=== PATIENT | female | born 1935 | race Caucasian/White ===

== ENCOUNTER 2020-03-03 14:39 | Inpatient (IN) | payer MEDICARE ==
[~2020-03-03] VITALS: Ht 160 cm; Wt 75.7 kg
[2020-03-03] MEDS ORDERED: TEMAZEPAM 7.5 MG CAPSULE PO PRN (15:00)
[2020-03-03] MEDS ORDERED: MAGNESIUM HYDROXIDE 30 ML UDC PO PRN (15:00)
[2020-03-03] MEDS ORDERED: clonazePAM 0.5 MG TABLET PO PRN (15:00)
[2020-03-03] MEDS ORDERED: ACETAMINOPHEN 325 MG TABLET PO PRN (15:00)
[2020-03-03] MEDS ORDERED: MAG HYDROX/AL HYDROX/SIMETH 30 ML UDC PO PRN ×2 (15:00→16:00)
--- NOTE | 2020-03-03 15:00 | NUR ---
RN NOTE ADMISSION/ PT ADMITTED TO [facility] FOR 5150 DTS AFTER ARRIVING IN ER AT HOSPITAL FOR SLEEPLESSNESS X SEVERAL DAYS. PT DEEMED UNABLE TO CARE FOR SELF AND AT RISK FOR HARMING SELF. PT ARRIVED ON [facility] W AMBULANCE STAFF. ON FACE TO FACE ASSESSMENT, PT FOUND TO BE ELDERLY FEMALE ALERT ORIENTED TO PERSON PLACE TIME AND PURPOSE. ALBANIAN SPEAKING MOSTLY. SPOKE W HER THROUGH ANALYTICAL CHEMIST. PT DENIES SI HI AH VH. STATES "I NEVER SAID I WANTED TO HURT MYSELF AT ALL. I WENT TO ER BECAUSE I SUFFER FROM INSOMNIA AND HAVEN'T SLEPT IN A FEW DAYS." PT VS FOLLOWS- BP- 165/65, HR- 80, RR-18, T- 98.0, SATS 98% RA. ACCU CHECK - BS- 93. MRSA CX OBTAINED AND SENT TO LAB. SKIN CHECK COMPLETED BY FEMALE RN-SKIN INTACT. PT W PMHX DEPRESSION, INSOMNIA ANXIETY, HYPERLIPIDEMIA, HTN AND CHRONIC CONSTIPATION. SHE HAS NKA. PT ORIENTED TO UNIT, PT RIGHTS PAMPHLET GIVEN, DRS INFORMED OF ADMISSION. ORDERS GIVEN AND COMPLIED WITH. PROVIDE SAFE THERAPEUTIC ENVIRONMENT. MONITOR. ASSIST.
[2020-03-03 15:14] VITALS: BP 165/65
[2020-03-03] MEDS ORDERED: FURO20TA4 PO (15:16)
[2020-03-03] MEDS ORDERED: CELE100C98 PO (15:16)
[2020-03-03] MEDS ORDERED: MULT1TAB69 PO (15:16)
[2020-03-03] MEDS ORDERED: HYDR-4076 PO (15:16)
[2020-03-03] MEDS ORDERED: PANT40TA49 PO (15:16)
[2020-03-03] MEDS ORDERED: ROSU10TA29 PO (15:16)
[2020-03-03] MEDS ORDERED: LORA2TAB95 PO (15:16)
[2020-03-03] MEDS ORDERED: TRAZ-257 PO (15:16)
[2020-03-03] MEDS ORDERED: OLME20TA23 PO (15:16)
[2020-03-03] MEDS ORDERED: METO50TA16 PO (15:16)
[2020-03-03] MEDS ORDERED: MECL-159 PO (15:16)
[2020-03-03] MEDS ORDERED: FAMO20TA8 PO (15:16)
[2020-03-03] MEDS ORDERED: SODI650T PO (15:26)
[2020-03-03] MEDS ORDERED: BLOOD SUGAR DIAGNOSTIC 1 EACH STRIP IN ONE ×2 (16:00→16:30)
--- NOTE | 2020-03-03 16:12 | NUR ---
RN-CO: DR PYLE MADE AWARE OF THE ADMISSION AND ORDER HIS ROUTINE ADMITTING ORDERS.
[2020-03-03 19:59] VITALS: BP 157/80
[2020-03-03] MEDS: MIRTAZAPINE 15 MG TABLET PO SCH (21:14)
[2020-03-03] MEDS: TEMAZEPAM 7.5 MG CAPSULE PO PRN (23:30)
--- NOTE | 2020-03-03 23:33 | NUR ---
GPS RN NOTE: INSOMNIA PT. C/O OF UNABLE TO SLEEP. ADMINISTERED RESTORIL 7.5 MG PO PRN ORDERED. WILL CONTINUE TO MONITOR FOR SAFETY AND BEHAVIOR.
[2020-03-04] MEDS: LORAZEPAM 0.5 MG TABLET PO PRN ×2 (00:45→22:19)
--- NOTE | 2020-03-04 00:47 | NUR ---
GPS RN NOTE: ANXIETY PT. APPEARS ANXIOUS. ADMINISTERED ATIVAN 0.5 MG PO PRN ORDERED. WILL CONTINUE TO MONITOR FOR SAFETY AND BEHAVIOR.
[2020-03-04] MEDS: MAGNESIUM HYDROXIDE 30 ML UDC PO PRN (06:17)
--- NOTE | 2020-03-04 06:19 | NUR ---
GPS RN NOTE: CONSTIPATION PT. C/O OF CONSTIPATION. ADMINISTERED MOM 30 ML PRN ORDERED. WILL CONTINUE TO MONITOR FOR SAFETY AND BEHAVIOR.
[2020-03-04 06:58] LABS: CHOLESTEROL 174 mg/dL (<200); HDL CHOLESTEROL 53 mg/dL (40-60); LDL 102 mg/dL (0-99); TRIGLYCERIDES 86 mg/dL (30-150)
[2020-03-04 07:23] LABS: ALANINE AMINOTRANSFERASE 19 U/L (12-78); ALBUMIN 3.4 g/dL (3.4-5.0); ALKALINE PHOSPHATASE 46 U/L (46-116); ASPARTATE AMINOTRANSFERASE 19 U/L (15-37); BILIRUBIN,TOTAL 0.5 mg/dL (0.2-1.0); CALCIUM, SERUM 8.7 mg/dL (8.5-10.1); CARBON DIOXIDE 23 mmol/L (21-32); CHLORIDE 108 mmol/L (98-107); CREATININE 1.8 mg/dL (0.6-1.3); GLUCOSE 86 mg/dL (74-106); POTASSIUM 4.1 mmol/L (3.5-5.1); SODIUM SERUM 142 mmol/L (136-145); TOTAL PROTEIN, SERUM 6.8 g/dL (6.4-8.2); UREA NITROGEN, BLOOD 25 mg/dL (7-18)
[2020-03-04 08:00] VITALS: BP 126/83
[2020-03-04] MEDS ORDERED: hydrALAZINE HCL 25 MG TABLET PO PRN (09:00)
[2020-03-04] MEDS: PANTOPRAZOLE 40 MG TABLET.DR PO SCH (10:01)
[2020-03-04] MEDS: SODIUM BICARBONATE 650 MG TABLET PO SCH ×3 (10:01→16:43)
[2020-03-04] MEDS: METOPROLOL TARTRATE 50 MG TABLET PO SCH ×2 (10:02→21:13)
--- NOTE | 2020-03-04 11:17 | NUR ---
Family Contact: SW called the pts daughter, Lesia ([phone]), and informed her that the SW will be in touch regarding the pts discharge. SW stated that the pt will be stabilized on medications and that the average length of stay is 7-10 days. SW confirmed that the pt can return to her home alone and the pts daughter stated that she has a caregiver who works about 44 hours a week. Pts daughter stated that she wants the pt to live with her but the pt refuses and "likes her independence." SW stated that she will keep pts daughter involved in the treatment plan.
--- NOTE | 2020-03-04 11:58 | NUR ---
Initial Discharge Plan: Pt currently resides in her home alone located at [address] [place] [address]. Per pt, she would like to return to her home and she has a caregiver. KARSTEN will work with the pt and the MD regarding appropriate discharge planning. SW will form a safe and proper discharge.
[2020-03-04 16:00] VITALS: BP 123/74
[2020-03-04 20:02] VITALS: BP 133/62
[2020-03-04] MEDS: ATORVASTATIN 10 MG TABLET PO SCH (21:13)
[2020-03-04] MEDS: MIRTAZAPINE 15 MG TABLET PO SCH (21:13)
[2020-03-04] MEDS: TEMAZEPAM 7.5 MG CAPSULE PO PRN (23:20)
[2020-03-05] MEDS: LORAZEPAM 0.5 MG TABLET PO PRN ×2 (04:41→20:16)
[2020-03-05 06:48] LABS: BASOPHILS % (AUTO) 0.7 % (0.0-2.0); EOSINOPHILS % (AUTO) 2.4 % (0.0-6.0); HEMATOCRIT 36 % (33-45); LYMPHOCYTES # (AUTO) 2.5 /CMM (0.8-4.8); LYMPHOCYTES % (AUTO) 41.5 % (20.0-44.0); MEAN CORPUSCULAR HGB CONC 33 g/dl (31.0-36.0); MEAN CORPUSCULAR VOLUME 94 fL (82-100); MONOCYTES # (AUTO) 0.6 /CMM (0.1-1.30); MONOCYTES % (AUTO) 9.2 % (2.0-12.0); NEUTROPHILS # (AUTO) 2.8 /CMM (1.8-8.9); NEUTROPHILS % (AUTO) 46.2 % (43.0-81.0); PLATELET COUNT (AUTO) 191 /CMM (150-450); RED BLOOD CELL COUNT(AUTO) 3.83 MIL/uL (4.0-5.2); WHITE BLOOD COUNT (AUTO) 6.1 K/uL (4.3-11.0)
[2020-03-05 06:59] LABS: CREATINE KINASE, TOTAL 126 U/L (26-192)
[2020-03-05 07:10] LABS: ALANINE AMINOTRANSFERASE 18 U/L (12-78); ALBUMIN 3.3 g/dL (3.4-5.0); ALKALINE PHOSPHATASE 43 U/L (46-116); ASPARTATE AMINOTRANSFERASE 19 U/L (15-37); BILIRUBIN,TOTAL 0.3 mg/dL (0.2-1.0); CALCIUM, SERUM 8.7 mg/dL (8.5-10.1); CARBON DIOXIDE 22 mmol/L (21-32); CHLORIDE 106 mmol/L (98-107); CREATININE 1.9 mg/dL (0.6-1.3); GLUCOSE 92 mg/dL (74-106); MAGNESIUM 2.6 mg/dL (1.8-2.4); PHOSPHORUS 3.6 mg/dL (2.5-4.9); POTASSIUM 4.5 mmol/L (3.5-5.1); SODIUM SERUM 139 mmol/L (136-145); TOTAL PROTEIN, SERUM 6.6 g/dL (6.4-8.2); UREA NITROGEN, BLOOD 34 mg/dL (7-18)
[2020-03-05 08:00] VITALS: BP 115/52
[2020-03-05] MEDS: PANTOPRAZOLE 40 MG TABLET.DR PO SCH (08:45)
[2020-03-05] MEDS: SODIUM BICARBONATE 650 MG TABLET PO SCH ×3 (08:46→16:51)
[2020-03-05] MEDS: METOPROLOL TARTRATE 50 MG TABLET PO SCH ×2 (08:47→20:59)
[2020-03-05] MEDS: LOSARTAN POTASSIUM 50 MG TABLET PO SCH (08:48)
[2020-03-05] MEDS: ACETAMINOPHEN 325 MG TABLET PO PRN (10:50)
[2020-03-05 16:10] VITALS: BP 140/66
--- NOTE | 2020-03-05 19:00 | NUR ---
GPS RN OPENING NOTES: RECEIVED PATIENT AWAKE AND IN BED, NO S/S OF DISTRESS NOTED. NO COMPLAIN OF PAIN.PATIENT'S BREATHING IS UNLABORED.PATIENT IS ALERT AND ORIENTED X2-3. PATIENT IS AMBULATORY WITH STEADY GAIT. PATIENT INSTRUCTED TO COLLECT URINE SAMPLE, ADVISED TO CALL RN IF NEEDED HELP,PATIENT VERBALIZED UNDERSTANDING. PATIENT DENIES SUICIDE IDEATIONS AND HOMICIDAL IDEATIONS AT THIS TIME. BEDSIDE RAILS UP X2 FOR SAFETY. BED IS LOCKED AND LOW POSITION. WILL CONTINUE TO MONITOR.
--- NOTE | 2020-03-05 19:52 | NUR ---
PATIENT IS WALKING IN THE HALLWAY, STEADY GAIT, ON THE PHONE TALKING TO HER SON.
--- NOTE | 2020-03-05 20:21 | NUR ---
PATIENT VERBALIZED" I'M NERVOUS". ATIVAN 0.5MG PO GIVEN. PATIENT IS IN THE BED AT THIS TIME.
[2020-03-05 20:32] VITALS: BP 160/85
[2020-03-05] MEDS: MIRTAZAPINE 15 MG TABLET PO SCH (20:58)
[2020-03-05] MEDS: ATORVASTATIN 10 MG TABLET PO SCH (20:58)
--- NOTE | 2020-03-05 21:02 | NUR ---
URINE SAMPLE COLLECTED FOR URINE TEST AND PLACED ON THE ICE AND CALLED THE LAB AND TALKED TO
[2020-03-05] MEDS: MAGNESIUM HYDROXIDE 30 ML UDC PO PRN (21:28)
[2020-03-05] MEDS: TEMAZEPAM 7.5 MG CAPSULE PO PRN (22:22)
[2020-03-06] MEDS: LORAZEPAM 0.5 MG TABLET PO PRN ×3 (02:03→19:51)
--- NOTE | 2020-03-06 02:11 | NUR ---
PATIENT STATES SHE HAD A DREAM AND SHE SLEPT.
[2020-03-06 02:15] LABS: CREATININE, URINE 18.9 MG/DL (30.0-125.0); URINE TOTAL PROTEIN 15.7 mg/dL (0-11.9)
[2020-03-06 04:36] LABS: EOSINOPHIL,URINE None Seen
[2020-03-06 04:38] LABS: APPEARANCE,URINE CLEAR (CLEAR); BILIRUBIN,URINE NEGATIVE (NEGATIVE); BLOOD, URINE NEGATIVE Ery/uL (NEGATIVE); COLOR,URINE YELLOW (YELLOW); KETONES,URINE NEGATIVE (NEGATIVE); LEUKOCYTE ESTERASE ,URINE NEGATIVE (NEGATIVE); NITRITE, URINE NEGATIVE (NEGATIVE); PROTEIN,URINE NEGATIVE (NEGATIVE); UGLUCOSE NEGATIVE (NEGATIVE); UROBILINOGEN,URINE 0.2 EU/dL (0.2)
[2020-03-06 06:07] VITALS: BP 122/69
--- NOTE | 2020-03-06 06:17 | NUR ---
CLOSING NOTES: PATIENT IS ASLEEP IN BED. NO S/S OF DISTRESS NOTED. BED IN LOWEST AND LOCKED POSITION.
[2020-03-06 08:00] VITALS: BP 116/59
[2020-03-06] MEDS: PANTOPRAZOLE 40 MG TABLET.DR PO SCH (08:41)
[2020-03-06] MEDS: LOSARTAN POTASSIUM 50 MG TABLET PO SCH (08:42)
[2020-03-06] MEDS: METOPROLOL TARTRATE 50 MG TABLET PO SCH ×2 (08:42→20:43)
[2020-03-06] MEDS: SODIUM BICARBONATE 650 MG TABLET PO SCH ×3 (08:43→17:33)
[2020-03-06 10:16] LABS: PTH, INTACT 60 pg/mL (15-65)
[2020-03-06] MEDS: HYDROCORTISONE 2.5% CREAM 28.4 GM TUBE TP SCH ×2 (12:52→17:33)
--- NOTE | 2020-03-06 14:05 | NUR ---
MOM GIVEN FOR C/O CONSTIPAATION X 3 DAYS.
[2020-03-06 16:00] VITALS: BP 136/74
--- NOTE | 2020-03-06 18:11 | NUR ---
GIVEN ATIVAN FOR ANXIETY.
--- NOTE | 2020-03-06 19:51 | NUR ---
RN NOTES : ANXIETY PT. C/O FEELING ANXIOUS PARANOID, PACING IN HALLWAY,ASKING FOR ATIVAN , ATIVAN 0.5 MG PO PRN GIVEN PER PT. REQUEST, WILL CONTINUE TO MONITOR. Addendum: 03/06/20 at 2022 by ROLANDO DARBY RN ADMINISTERED BY DAY RN AT 1808 , EARLY TOO GIVEN AT THIS TIME , BUT PT WAS REQUESTING FOR ATIVAN , BY MISTAKE PULL OUT FROM [facility] AND [facility] ,WITH CHARGE NURSE BY WITNESS, AND CHARGE NURSE MADE AWARE. Addendum: 03/06/20 at 2024 by ROLANDO DARBY RN WRONG CHARTING FOR ATIVAN ADMINISTERED, BUT ATIVAN NONE ADMIN [facility]ED [facility] TO [facility] , WITH CHARGE NURSE WITNESS.
[2020-03-06 20:06] VITALS: BP 163/71
[2020-03-06 20:43] VITALS: BP 145/82
[2020-03-06] MEDS: ATORVASTATIN 10 MG TABLET PO SCH (21:17)
[2020-03-06] MEDS: MIRTAZAPINE 15 MG TABLET PO SCH (21:17)
[2020-03-06] MEDS: TEMAZEPAM 7.5 MG CAPSULE PO PRN (22:38)
--- NOTE | 2020-03-06 22:39 | NUR ---
RN NOTES : INSOMNIA : PT. C/O INSOMNIA RESTORIL 7.5 MG PO PRN GIVEN PER PT. REQUEST, WILL CONTINUE TO MONITOR.
[2020-03-07] MEDS: ACETAMINOPHEN 325 MG TABLET PO PRN ×2 (04:59→23:41)
--- NOTE | 2020-03-07 06:00 | NUR ---
RN NOTES : PER DAY NURSE MOM GIVEN, MOM EFFECTIVE, PT. REPORTED HAD X 1 BM , DENIES ANY PAIN DISCOMFRT AT THIS TIME.
--- NOTE | 2020-03-07 06:50 | NUR ---
GPS RN NOTES: PT. RESTING IN HER ROOM, NO S/S OF DISTRESS NOTED . PT. CALM COOPERTIVE NOTE AT THIS TIME ,NO CHANGE OF CONDITION NOTED ,AND NO BEHAVIOR PROBLEMS NOTED, ALL CARE NEEDS MET ANTICIPATED. WILL CONTINUE TO MONITOR FOR SAFETY BEHAVIOR, AND ENDORSE TO AM SHIFT FOR CONTINUITY OF CARE.
[2020-03-07 08:00] VITALS: BP 145/71
[2020-03-07] MEDS: HYDROCORTISONE 2.5% CREAM 28.4 GM TUBE TP SCH ×2 (08:14→16:57)
[2020-03-07] MEDS: SODIUM BICARBONATE 650 MG TABLET PO SCH ×3 (08:14→16:57)
[2020-03-07] MEDS: PANTOPRAZOLE 40 MG TABLET.DR PO SCH (08:15)
[2020-03-07] MEDS: METOPROLOL TARTRATE 50 MG TABLET PO SCH ×2 (08:15→21:13)
[2020-03-07] MEDS: LOSARTAN POTASSIUM 50 MG TABLET PO SCH (08:15)
[2020-03-07 16:00] VITALS: BP 144/81
[2020-03-07] MEDS ORDERED: [UNRECOGNIZED DRUG - OTHER] PO SCH (16:30)
[2020-03-07] MEDS: LORAZEPAM 0.5 MG TABLET PO PRN (17:01)
[2020-03-07 20:44] VITALS: BP 155/83
[2020-03-07] MEDS: MIRTAZAPINE 15 MG TABLET PO SCH (21:19)
[2020-03-07] MEDS: ATORVASTATIN 10 MG TABLET PO SCH (21:20)
--- NOTE | 2020-03-07 21:21 | NUR ---
GPS-RN NOTE: CONSTIPATION PATIENT C/O NOT HAVING BOWEL MOVEMENT FOR 2 DAYS. ADMINISTERED PRUNELAX ORDERED. WILL CONTINUE TO MONITOR.
[2020-03-07] MEDS: TEMAZEPAM 7.5 MG CAPSULE PO PRN (23:31)
--- NOTE | 2020-03-07 23:31 | NUR ---
GPS-RN NOTE: INSOMNIA PATIENT C/O INABILITY TO SLEEP. ADMINISTERED RESTORIL 7.5MG PO ORDERED. WILL CONTINUE TO MONITOR FOR PT'S SAFETY.
--- NOTE | 2020-03-07 23:41 | NUR ---
GPS-RN NOTE: C/O HEADACHE PATIENT C/O HEADACHE ON A PAIN SCALE OF 3/10. ADMINISTERED ACETAMINOPHEN 650MG PO ORDERED. WILL CONTINUE TO REASSESS.
[2020-03-08 07:37] LABS: CALCIUM, SERUM 8.8 mg/dL (8.5-10.1); CARBON DIOXIDE 24 mmol/L (21-32); CHLORIDE 108 mmol/L (98-107); CREATININE 1.9 mg/dL (0.6-1.3); GLUCOSE 85 mg/dL (74-106); MAGNESIUM 2.7 mg/dL (1.8-2.4); PHOSPHORUS 4.6 mg/dL (2.5-4.9); POTASSIUM 4.4 mmol/L (3.5-5.1); SODIUM SERUM 141 mmol/L (136-145); UREA NITROGEN, BLOOD 43 mg/dL (7-18)
[2020-03-08 07:38] LABS: BASOPHILS % (AUTO) 0.9 % (0.0-2.0); EOSINOPHILS % (AUTO) 3.1 % (0.0-6.0); HEMATOCRIT 36 % (33-45); HEMOGLOBIN 12.1 g/dL (11.5-14.8); LYMPHOCYTES # (AUTO) 2.3 /CMM (0.8-4.8); LYMPHOCYTES % (AUTO) 46.3 % (20.0-44.0); MEAN CORPUSCULAR HGB CONC 33 g/dl (31.0-36.0); MEAN CORPUSCULAR VOLUME 94 fL (82-100); MONOCYTES # (AUTO) 0.4 /CMM (0.1-1.30); MONOCYTES % (AUTO) 8.4 % (2.0-12.0); NEUTROPHILS # (AUTO) 2.1 /CMM (1.8-8.9); NEUTROPHILS % (AUTO) 41.3 % (43.0-81.0); PLATELET COUNT (AUTO) 210 /CMM (150-450); RED BLOOD CELL COUNT(AUTO) 3.84 MIL/uL (4.0-5.2)
[2020-03-08] MEDS: PANTOPRAZOLE 40 MG TABLET.DR PO SCH (07:40)
[2020-03-08] MEDS: MAGNESIUM HYDROXIDE 30 ML UDC PO PRN (07:40)
[2020-03-08 08:00] VITALS: BP 160/73
[2020-03-08] MEDS: METOPROLOL TARTRATE 50 MG TABLET PO SCH ×2 (08:06→20:05)
[2020-03-08 08:07] LABS: *SPE A/G RATIO 1.2 (0.7-1.7); *SPE ALBUMIN 3.2 g/dL (2.9-4.4); *SPE ALPHA-1-GLOBULIN 0.2 g/dL (0.0-0.4); *SPE ALPHA-2-GLOBULIN 0.7 g/dL (0.4-1.0); *SPE GLOBULIN, TOTAL 2.7 g/dL (2.2-3.9); *SPE M-SPIKE Not Observed g/dL (Not Observed); *SPEGAMMA GLOBULIN 0.7 g/dL (0.4-1.8)
[2020-03-08] MEDS: SODIUM BICARBONATE 650 MG TABLET PO SCH ×3 (08:07→17:14)
[2020-03-08] MEDS: LOSARTAN POTASSIUM 50 MG TABLET PO SCH (08:07)
[2020-03-08] MEDS: HYDROCORTISONE 2.5% CREAM 28.4 GM TUBE TP SCH ×2 (08:07→17:14)
[2020-03-08] MEDS: PRUNELAX PO PRN (11:33)
--- NOTE | 2020-03-08 11:33 | NUR ---
RN NOTE: PT C/O CONSTIPATION. MEDICATED WITH PRUNELAX OTC PRN
[2020-03-08] MEDS: AMLODIPINE BESYLATE 5 MG TABLET PO SCH (12:51)
[2020-03-08 16:00] VITALS: BP 142/66
[2020-03-08] MEDS: LORAZEPAM 0.5 MG TABLET PO PRN (17:14)
--- NOTE | 2020-03-08 17:15 | NUR ---
RN NOTE: ANXIETY PT C/O INCREASING ANXIETY AND DEPRESSION. PT REQUESTING ATIVAN. ATIVAN 0.5 MG PO PRN
[2020-03-08 19:51] VITALS: BP 151/65
[2020-03-08] MEDS: ATORVASTATIN 10 MG TABLET PO SCH (21:10)
[2020-03-08] MEDS: MIRTAZAPINE 15 MG TABLET PO SCH (21:11)
[2020-03-08 22:15] VITALS: BP 139/63
[2020-03-08] MEDS: TEMAZEPAM 7.5 MG CAPSULE PO PRN (22:22)
--- NOTE | 2020-03-08 22:23 | NUR ---
GPS RN NOTES: INSOMNIA PT C/O UNABLE TO SLEEP. PT REQUESTED SLEEPING MEDICATION. VITALS CHECKED WNL. OFFERED RESTORIL 7.5MG PO PRN. PT AGREED AND TOLERATED MEDICATION WELL. CONTINUE TO MONITOR.
[2020-03-09 00:30] VITALS: BP 131/68
[2020-03-09] MEDS: LORAZEPAM 0.5 MG TABLET PO PRN ×3 (00:35→16:10)
--- NOTE | 2020-03-09 00:37 | NUR ---
GPS RN NOTES: ANXIOUS UPON DOING ROUNDS, PT AWAKE SITTING IN A CHAIR IN HER ROOM. ENCOURAGE PT TO EXPRESS THOUGHTS OF FEELINGS TO STAFF. PT STATED, "I FEEL TOO NERVOUS TO SLEEP RIGHT NOW. I HAVE A LOT TO THINK ABOUT." VITALS CHECKED WNL. OFFERED ATIVAN PO PRN ORDERED. PT AGREED AND TOLERATED MEDICATION WELL. CONTINUE TO MONITOR.
[2020-03-09 08:00] VITALS: BP 129/72
[2020-03-09] MEDS: METOPROLOL TARTRATE 50 MG TABLET PO SCH ×2 (08:07→20:02)
[2020-03-09] MEDS: LOSARTAN POTASSIUM 50 MG TABLET PO SCH (08:08)
[2020-03-09] MEDS: PANTOPRAZOLE 40 MG TABLET.DR PO SCH (08:08)
[2020-03-09] MEDS: SODIUM BICARBONATE 650 MG TABLET PO SCH ×3 (08:08→16:10)
[2020-03-09] MEDS: AMLODIPINE BESYLATE 5 MG TABLET PO SCH (08:08)
[2020-03-09] MEDS: PRUNELAX PO PRN (08:08)
[2020-03-09] MEDS: HYDROCORTISONE 2.5% CREAM 28.4 GM TUBE TP SCH ×2 (08:09→16:10)
--- NOTE | 2020-03-09 08:09 | NUR ---
RN NOTE: ANXIETY PT C/O ANXIETY. EXHIBITING SIGNS OF ANXIETY AND NERVOUSNESS. REQUESTING ATIVAN. ATIVAN 0.5 MG PO PRN ADMINISTERED
--- NOTE | 2020-03-09 08:10 | NUR ---
RN NOTE: CONSTIPATION PT C/O CHRONIC CONSTIPATION REQUESTING PRUNELAX PRN. LAXATIVE ADMINISTERED
[2020-03-09] MEDS: Fluoxetine 10 mg capsule PO SCH (10:57)
[2020-03-09 16:00] VITALS: BP 122/70
--- NOTE | 2020-03-09 16:11 | NUR ---
RN NOTE: ANXIETY PT C/O INCREASING ANXIETY. REQUESTING ATIVAN. ATIVAN 0.5 MG PO PRN ADMINISTERED
[2020-03-09 19:44] VITALS: BP 150/69
[2020-03-09] MEDS: ATORVASTATIN 10 MG TABLET PO SCH (21:11)
[2020-03-09] MEDS: MIRTAZAPINE 15 MG TABLET PO SCH (21:12)
[2020-03-09] MEDS: TEMAZEPAM 7.5 MG CAPSULE PO PRN (22:14)
[2020-03-10 08:00] VITALS: BP 159/80
[2020-03-10] MEDS: PANTOPRAZOLE 40 MG TABLET.DR PO SCH (08:35)
[2020-03-10] MEDS: SODIUM BICARBONATE 650 MG TABLET PO SCH ×3 (08:35→17:14)
[2020-03-10] MEDS: Fluoxetine 10 mg capsule PO SCH (08:36)
[2020-03-10] MEDS: AMLODIPINE BESYLATE 5 MG TABLET PO SCH (08:36)
[2020-03-10] MEDS: METOPROLOL TARTRATE 50 MG TABLET PO SCH ×2 (08:36→21:08)
[2020-03-10] MEDS: LOSARTAN POTASSIUM 50 MG TABLET PO SCH (08:37)
[2020-03-10] MEDS: HYDROCORTISONE 2.5% CREAM 28.4 GM TUBE TP SCH ×2 (08:37→17:14)
[2020-03-10] MEDS: LORAZEPAM 0.5 MG TABLET PO PRN ×2 (12:19→21:08)
--- NOTE | 2020-03-10 12:19 | NUR ---
RN-CO: ATIVAN PO GIVEN FOR C/O RESTLESSNESS AND NERVOUSNESS.
[2020-03-10] MEDS: MAGNESIUM HYDROXIDE 30 ML UDC PO PRN (12:44)
[2020-03-10 16:00] VITALS: BP 138/71
--- NOTE | 2020-03-10 16:18 | NUR ---
GPS RN NOTE RECEIVED PT IN DAY ROOM, WATCHING TV, NO DISTRESS NOTED, PT IS A/O X3,DENIES PAIN, NO DISTRESS NOTED, VITAL SIGNS STABLE, ALL NEEDS MET AT THIS TIME, WILL CONTINUE TO MONITOR Q15MIN FOR SAFETY AND BEHAVIOR
[2020-03-10 20:37] VITALS: BP 134/55
[2020-03-10] MEDS: MIRTAZAPINE 15 MG TABLET PO SCH (21:08)
[2020-03-10] MEDS: ATORVASTATIN 10 MG TABLET PO SCH (21:08)
[2020-03-10] MEDS: ACETAMINOPHEN 325 MG TABLET PO PRN (23:32)
--- NOTE | 2020-03-10 23:35 | NUR ---
GPS RN NOTE: PAIN PT WAS C/O OF A HEADACHE, REQUESTED TYLENOL, ADMIN TYLENOL PRN @ [id number].
[2020-03-11] MEDS: TEMAZEPAM 7.5 MG CAPSULE PO PRN ×2 (00:13→22:38)
--- NOTE | 2020-03-11 00:20 | NUR ---
GPS RN NOTE: PAIN PT REQUESTED RESTORIL DUE TO HAVING DIFFICULTY SLEEPING, ADMIN PRN CARSONIL @ 0013, WILL REASSESS AND CONTINUE TO MONITOR Q15MIN FOR SAFETY AND BEHAVIOR. Addendum: 03/11/20 at 0100 by DARRIAN ESPINAL RN CORRECTION GPS RN NOTE: INSOMNIA
[2020-03-11 08:00] VITALS: BP 150/66
--- NOTE | 2020-03-11 08:00 | NUR ---
GPS RN OPENING NOTES RECEIVED PATIENT IN BED, AWAKE,ALERT AND ORIENTED X4. PATIENT IN NO APPARENT RESPIRATORY DISTRESS NOTED. PATIENT DENIES PAIN AT THIS TIME, WILL CONTINUE TO MONITOR Q15MIN FOR SAFETY AND BEHAVIOR
[2020-03-11] MEDS: LOSARTAN POTASSIUM 50 MG TABLET PO SCH (08:23)
[2020-03-11] MEDS: AMLODIPINE BESYLATE 5 MG TABLET PO SCH (08:24)
[2020-03-11] MEDS: Fluoxetine 10 mg capsule PO SCH (08:24)
[2020-03-11] MEDS: SODIUM BICARBONATE 650 MG TABLET PO SCH ×3 (08:24→16:30)
[2020-03-11] MEDS: METOPROLOL TARTRATE 50 MG TABLET PO SCH ×2 (08:24→21:11)
[2020-03-11] MEDS: PANTOPRAZOLE 40 MG TABLET.DR PO SCH (08:24)
[2020-03-11] MEDS: HYDROCORTISONE 2.5% CREAM 28.4 GM TUBE TP SCH ×2 (08:27→16:30)
--- NOTE | 2020-03-11 09:21 | NUR ---
GPS/RN NOTES PATIENT COMPLAINED OF CONSTIPATION AND REQUEST FOR MILK OF MAGNESIA, MILK OF MAGNESIA 30 ML WAS GIVEN. WILL CONTINUE TO MONITOR.
[2020-03-11] MEDS: MAGNESIUM HYDROXIDE 30 ML UDC PO PRN (09:24)
[2020-03-11] MEDS: LORAZEPAM 0.5 MG TABLET PO PRN (15:00)
[2020-03-11 16:00] VITALS: BP 152/73
--- NOTE | 2020-03-11 18:15 | NUR ---
GPS RN CLOSING NOTES: PATIENT IS ON BED, PATIENT IN NO APPARENT RESPIRATORY OF DISTRESS NOTED. PATIENT DENIES PAIN AT THIS TIME. PATIENT IS CALM AND COOPERATIVE, NO CHANGE OF CONDITION NOTED AND NO BEHAVIOR PROBLEMS NOTED AT THIS TIME, ALL CARE NEEDS MET ANTICIPATED. ALL DUE MEDICATION WAS GIVEN. WILL CONTINUE ENDORSED TO DIGITAL TRAFFIC COORDINATOR FOR CONTINUITY OF CARE
[2020-03-11 19:51] VITALS: BP 128/56
[2020-03-11] MEDS: ATORVASTATIN 10 MG TABLET PO SCH (21:56)
[2020-03-11] MEDS: MIRTAZAPINE 15 MG TABLET PO SCH (21:56)
--- NOTE | 2020-03-11 22:39 | NUR ---
RN NOTES : INSOMNIA : PT. C/O INSOMNIA RESTORIL 7.5 MG PO PRN GIVEN PER PT. REQUEST, WILL CONTINUE TO MONITOR.
[2020-03-11 23:00] VITALS: BP 124/69
--- NOTE | 2020-03-12 06:57 | NUR ---
GPS RN NOTES: PT. RESTING IN HER ROOM, NO S/S OF DISTRESS NOTED . PT. CALM COOPERTIVE,NO CHANGE OF CONDITION NOTED ,AND NO BEHAVIOR PROBLEMS NOTED AT THIS TIME, ALL CARE NEEDS MET ANTICIPATED. WILL CONTINUE TO MONITOR FOR SAFETY BEHAVIOR, AND ENDORSE TO AM SHIFT FOR CONTINUITY OF CARE.
[2020-03-12] MEDS: PANTOPRAZOLE 40 MG TABLET.DR PO SCH (07:50)
[2020-03-12 08:00] VITALS: BP 144/62
--- NOTE | 2020-03-12 08:05 | NUR ---
Discharge Note: Patient will be discharged back home [address] [place] [address]; ([phone]). Patients daughter Lesia ([phone]) will picker patient at 12:30PM. Payal is aware and agreeable with discharge plan. Patient appeared alert and oriented x3-4. Patient is agreeable and aware of discharge. Upon discharge, patient appear to be calm, cooperative and happy to be going home. Patient will follow up with (Social Sciences Instructor) Dr. Quintanilla located [facility] [place] [address]; ([phone]) walk-in Sunday, Sunday, , Sunday between 9:45AM. Patient will follow up at [facility] on March 16 at 9:30 VIA TELEPHONE [address] [place] [address]; ([phone]) and will be assigned with a psychiatrist upon intake evaluation. Patient presented with euthymic mood and congruent affect.
[2020-03-12] MEDS: LOSARTAN POTASSIUM 50 MG TABLET PO SCH (08:44)
[2020-03-12 08:45] VITALS: BP 144/62
[2020-03-12] MEDS: METOPROLOL TARTRATE 50 MG TABLET PO SCH (08:45)
[2020-03-12] MEDS: AMLODIPINE BESYLATE 5 MG TABLET PO SCH (08:45)
[2020-03-12] MEDS: Fluoxetine 10 mg capsule PO SCH (08:45)
[2020-03-12] MEDS: SODIUM BICARBONATE 650 MG TABLET PO SCH ×2 (08:45→12:04)
[2020-03-12] MEDS: HYDROCORTISONE 2.5% CREAM 28.4 GM TUBE TP SCH (08:55)
--- NOTE | 2020-03-12 09:00 | NUR ---
RN NOTE- PT IN ROOM EATING, GOOD INTAKE INTERACTIVE NEEDS ATTENDED MED COMPLIANT FOCUS ON DC DENIES ALL.
--- NOTE | 2020-03-12 12:50 | NUR ---
RN DC NOTE- PT DISCHARGED HOME AT THIS TIME VIA WHEELCHAIR. VS STABLE, CURRENTLY DENIES SI HI AH VH, DC INSTRUCTIONS REVIEWED W PATIENT AND VERBALIZED UNDERSTANDING RETURNED. NASAL REDNESS PRESENTING ON ADMISSION HAS RESOLVED. NO PHOTOS REQUIRED. ID [id number] REMOVED, VALUABLES RETURNED TO PT AND SIGNED FOR. ESCORTED OFF UNIT VIA WCR BY THIS RN AND INTO CARE OF DAUGHTER MACIE. CONTINUING CARE FORM SIGNED.
== END 2020-03-12 12:50 | disposition home or self-care (01) | DRG 881 ==
LOC: GPS 14:39
PROVIDERS: ADMIT Psychiatry & Neurology Psychiatry; ATTEND Nurse Practitioner Acute Care
DX: F32.9 Major depressive disorder, single episode, unspecified (principal); N18.9 Chronic kidney disease, unspecified; N17.0 Acute kidney failure with tubular necrosis; E87.2 Acidosis; F41.9 Anxiety disorder, unspecified; G47.00 Insomnia, unspecified; Z79.899 Other long term (current) drug therapy; Z73.6 Limitation of activities due to disability; R27.8 Other lack of coordination; Z91.81 History of falling; I12.9 Hypertensive chronic kidney disease with stage 1 through stage 4 chronic kidney disease, or unspecified chronic kidney disease; K21.9 Gastro-esophageal reflux disease without esophagitis; K59.09 Other constipation; N28.1 Cyst of kidney, acquired
CPT/HCPCS: 36415; 76770-TC; 80048-TC; 80053-TC; 80061-TC; 81000-TC; 82550-TC; 82570-TC; 82962-TC; 83615-TC; 83735-TC; 83970; 84100-TC; 84155; 84155-TC; 84165; 84300-TC; 85025-TC; 87081-TC